=== PATIENT | female | born 1955 | race Caucasian/White ===

== ENCOUNTER → 2017-10-31 | Outpatient (CLI) | payer BC ==
[2017-11-03 11:40] LABS: HPV Genotype 16 Not Detected (NOTDET); HPV Genotype 18 Not Detected (NOTDET)
[2017-11-10 11:41] LABS: HPV High Risk Other Not Detected (NOTDET)
== END ==
LOC: LAB 09:54
PROVIDERS: Nurse Practitioner Family
DX: Z01.419 Encounter for gynecological examination (general) (routine) without abnormal findings (principal)
CPT/HCPCS: 87624; G0145

== ENCOUNTER → 2019-05-31 | Outpatient (CLI) | payer MEDICARE ==
[~2019-05-31] MED LIST: Bupropion HCl150 M2 PO; FERSU300 PO; KRILL OIL500 MG PO; LISI20 PO; VAGIFEM10 MCG VAG; VITAMIN C500 MG PO; ZESTORETIC 20-121 EA PO
== END ==
LOC: LAB 15:30 → LAB SHORT 15:30
DX: Z48.817 Encounter for surgical aftercare following surgery on the skin and subcutaneous tissue (principal); L08.9 Local infection of the skin and subcutaneous tissue, unspecified
CPT/HCPCS: 87070; 87205

== ENCOUNTER 2019-08-07 08:20 | Day surgery (SDC) | payer MEDICARE ==
[~2019-08-07] VITALS: Ht 165.1 cm; Wt 55.9 kg
--- NOTE | 2019-08-07 08:55 | NUR ---
08/07/19 0855 Amanda Barnes IV START IN RIGHT HAND DID NOT FLOW
== END 2019-08-07 11:05 | disposition home or self-care (01) ==
LOC: ORSCSDS 08:20
PROVIDERS: Internal Medicine Gastroenterology
PROC: 0DB98ZX Excision of Duodenum, Via Natural or Artificial Opening Endoscopic, Diagnostic (ICD-10-PCS; principal; 2019-08-07 09:45)
PROC: 0DB48ZX Excision of Esophagogastric Junction, Via Natural or Artificial Opening Endoscopic, Diagnostic (ICD-10-PCS; principal; 2019-08-07 09:45)
PROC: 0DBP8ZX Excision of Rectum, Via Natural or Artificial Opening Endoscopic, Diagnostic (ICD-10-PCS; principal; 2019-08-07 09:45)
PROC: 0DBL8ZX Excision of Transverse Colon, Via Natural or Artificial Opening Endoscopic, Diagnostic (ICD-10-PCS; principal; 2019-08-07 09:45)
PROC: 0DB68ZX Excision of Stomach, Via Natural or Artificial Opening Endoscopic, Diagnostic (ICD-10-PCS; principal; 2019-08-07 09:45)
DX: D50.9 Iron deficiency anemia, unspecified (principal); C20 Malignant neoplasm of rectum; D12.3 Benign neoplasm of transverse colon; K21.9 Gastro-esophageal reflux disease without esophagitis; I10 Essential (primary) hypertension; N18.3 Chronic kidney disease, stage 3 (moderate); R63.4 Abnormal weight loss; Z79.899 Other long term (current) drug therapy
CPT/HCPCS: 88305; 88342; J2704; J7120

== ENCOUNTER 2019-08-19 05:50 | Day surgery (SDC) | payer MEDICARE ==
[~2019-08-19] VITALS: Ht 162.6 cm; Wt 57.8 kg
--- NOTE | 2019-08-19 06:35 | NUR ---
Ambulatory in Day Surgery History, Chart, Medications and Allergies reviewed before start of procedure.Lungs clear T/O to Auscultation. Patient confirms NPO status and agrees with scheduled surgery. Patient reports completing Chlorhexadine shower X2 prior to admission to hospital.Surgical site prepped with 2% Chlorhexidine cloth wipe.
--- NOTE | 2019-08-19 11:02 | NUR ---
Discharge instructions reviewed with patient. Patient verbalizes understanding. Copy given to patient to take home. Discharged via wheelchair to private car for ride home.
== END 2019-08-19 22:50 | disposition home or self-care (01) ==
LOC: ORSCMMR 05:50 → ORD 07:30 → ORSCMMR 07:30
PROVIDERS: Surgery
PROC: B5131ZA Fluoroscopy of Right Jugular Veins using Low Osmolar Contrast, Guidance (ICD-10-PCS; principal; 2019-08-19 07:30)
PROC: 05HM33Z Insertion of Infusion Device into Right Internal Jugular Vein, Percutaneous Approach (ICD-10-PCS; principal; 2019-08-19 07:30)
DX: C20 Malignant neoplasm of rectum (principal); I10 Essential (primary) hypertension; Z79.899 Other long term (current) drug therapy
CPT/HCPCS: 71045; 77001; A9270-GY; C1788; J0690; J1100; J1642; J2250; J2405; J2704; J3010; J7120

== ENCOUNTER 2019-10-23 00:01 | Day surgery (SDC) | payer MEDICARE ==
[2019-10-23] MEDS ORDERED: ASCO500 PO (11:49)
[2019-10-23] MEDS ORDERED: ONDA8 PO (11:51)
[2019-10-23] MEDS ORDERED: TRIDERM28.4 GM TOP (11:54)
[2019-10-23] MEDS ORDERED: LEVOFLOXACIN750 MG PO (11:55)
[2019-10-23] MEDS ORDERED: METPRE4 PO (11:57)
[2019-10-23] MEDS ORDERED: KRILL OIL 5001 EACH PO (11:59)
[2019-10-23] MEDS ORDERED: HEPARIN LO100 UNIT/1 IV (12:03)
== END 2019-10-23 11:40 | disposition home or self-care (01) ==
LOC: ATC 00:01
DX: Z45.1 Encounter for adjustment and management of infusion pump (principal); C20 Malignant neoplasm of rectum; C77.5 Secondary and unspecified malignant neoplasm of intrapelvic lymph nodes; I12.9 Hypertensive chronic kidney disease with stage 1 through stage 4 chronic kidney disease, or unspecified chronic kidney disease; N18.3 Chronic kidney disease, stage 3 (moderate); E55.9 Vitamin D deficiency, unspecified; D50.9 Iron deficiency anemia, unspecified; Z79.890 Hormone replacement therapy; Z79.899 Other long term (current) drug therapy; Z88.5 Allergy status to narcotic agent
CPT/HCPCS: 96523; J1642

== ENCOUNTER 2020-03-06 06:07 | Emergency (ER) | payer MEDICARE ==
[~2020-03-06] VITALS: Ht 162.6 cm; Wt 59.0 kg
[~2020-03-06 06:07] MED LIST changes: +ASCO500 PO; +HEPARIN LO100 UNIT/1 IV; +KRILL OIL 5001 EACH PO; +LEVOFLOXACIN750 MG PO; +METPRE4 PO; +ONDA8 PO; +TRIDERM28.4 GM TOP
[2020-03-06] MEDS ORDERED: OMEP20ER PO (06:22)
[2020-03-06 07:51] LABS: Source, Urine Clean Catch
[2020-03-06 07:53] LABS: BASOPHILS ABSOLUTE AUTO 0.02 K/mm3 (0.00-0.23); BASOPHILS PERCENT AUTO 0 % (0-2); EOSINOPHILS PERCENT AUTO 0 % (0-6); Hematocrit 38.8 % (33.0-51.0); Hemoglobin 13.2 g/dL (11.5-16.0); IMMATURE GRAN ABSOLUTE AUTO 0.03 K/mm3 (0.00-0.10); IMMATURE GRAN PERCENT AUTO 0 % (0-1); LYMPHOCYTES PERCENT AUTO 3 % (21-46); MONOCYTES ABSOLUTE AUTO 0.66 K/mm3 (0.16-1.47); MONOCYTES PERCENT AUTO 7 % (4-13); Mean Corpuscular HGB 36.7 pg (26.0-34.0); Mean Corpuscular Volume 108 fL (80-100); Mean Platelet Volume 9.1 fL (9.1-12.4); NEUTROPHILS PERCENT AUTO 90 % (41-73); Platelet Count 297 K/mm3 (150-400); RDW Coefficient Variation 13.8 % (11.7-14.2); RDW Standard Deviation 55.2 fL (35.1-46.3); White Blood Cell Count 10.11 K/mm3 (4.00-11.30)
[2020-03-06 07:57] LABS: Bilirubin, Urine Neg (Neg); Blood, Urine 1+ (Neg); Glucose Qualitative, Urine Neg (Neg); Ketones, Urine Neg (Neg); Leukocyte Esterase, Urine 1+ (Neg); Nitrite, Urine Neg (Neg); Protein, Urine Neg (Neg); Specific Gravity, Urine 1.015 (1.003-1.022); Urobilinogen, Urine 2+ (Normal)
[2020-03-06 08:07] LABS: Appearance, Urine Clear (Clear); Color, Urine Yellow (P-Yellow)
[2020-03-06 08:08] LABS: Bacteria Few /hpf; Calcium Oxalate Crystals Rare /hpf; Mucus Light (0-Heavy); Red Blood Cells, Urine 0-2 /hpf (0-2); Squamous Epithelial Cells Rare /hpf (Few)
[2020-03-06 08:12] LABS: Albumin, Blood 3.2 g/dL (3.4-5.0); Albumin/Globulin Ratio 0.9 (0.8-1.8); Bilirubin, Total 1.2 mg/dL (0.1-1.0); Bun/Creatinine Ratio 21.5 (12.0-20.0); Calcium, Blood 9.3 mg/dL (8.5-10.1); Creatinine, Blood 1.07 mg/dL (0.40-1.00); Globulin, Blood 3.6 g/dL (2.2-4.0); Potassium, Blood 4.1 mmol/L (3.5-5.5); Total Protein, Blood 6.8 g/dL (6.4-8.2)
[2020-03-06] MEDS ORDERED: Augmentin 875-1 EACH PO (10:05)
[2020-03-06] MEDS ORDERED: ONDA4ODT MM (10:05)
[2020-03-06] MEDS ORDERED: Ultram50 MG PO (10:13)
== END 2020-03-06 10:21 | disposition home or self-care (01) ==
LOC: ER 06:07
PROVIDERS: Emergency Medicine
DX: K50.00 Crohn's disease of small intestine without complications (principal); I10 Essential (primary) hypertension; K21.9 Gastro-esophageal reflux disease without esophagitis; Z88.5 Allergy status to narcotic agent; Z79.899 Other long term (current) drug therapy; Z90.49 Acquired absence of other specified parts of digestive tract
CPT/HCPCS: 36415; 74177; 80053; 81001; 83690; 85025; 87086; 96374-59; 96375-59; 99284-25; J2405; J3010; Q9967

== ENCOUNTER 2020-03-15 19:38 | Inpatient (IN) | payer MEDICARE ==
[~2020-03-15] VITALS: Ht 162.6 cm; Wt 59.0 kg
[~2020-03-15 19:38] MED LIST changes: +Augmentin 875-1 EACH PO; +OMEP20ER PO; +ONDA4ODT MM; +Ultram50 MG PO
[2020-03-15 20:14] LABS: Hematocrit 40.3 % (33.0-51.0); Hemoglobin 13.4 g/dL (11.5-16.0); Mean Corpuscular HGB 35.6 pg (26.0-34.0); Mean Corpuscular HGB Conc 33.3 g/dL (31.5-36.5); Mean Corpuscular Volume 107 fL (80-100); Mean Platelet Volume 8.9 fL (9.1-12.4); Platelet Count 364 K/mm3 (150-400); RDW Coefficient Variation 12.9 % (11.7-14.2); RDW Standard Deviation 51.1 fL (35.1-46.3); Red Blood Cell Count 3.76 M/mm3 (3.80-5.20); White Blood Cell Count 12.87 K/mm3 (4.00-11.30)
[2020-03-15 20:34] LABS: Alanine Aminotransfer (ALT/SGP 13 U/L (12-78); Albumin, Blood 3.3 g/dL (3.4-5.0); Albumin/Globulin Ratio 0.8 (0.8-1.8); Alk Phos 99 U/L (50-136); Anion Gap 6 mmol/L (6-16); Aspartate Aminotrans (AST/SGOT 20 U/L (12-37); Bilirubin, Total 1.3 mg/dL (0.1-1.0); Blood Urea Nitrogen 16 mg/dL (8-24); Bun/Creatinine Ratio 17.7 (12.0-20.0); CO2, Blood 30 mmol/L (21-32); Calcium, Blood 9.4 mg/dL (8.5-10.1); Chloride, Blood 101 mmol/L (98-108); Creatinine, Blood 0.91 mg/dL (0.40-1.00); Globulin, Blood 3.9 g/dL (2.2-4.0); Glomerular Filtration Rate >60 (60-); Glucose, Blood 118 mg/dL (70-99); Potassium, Blood 3.6 mmol/L (3.5-5.5); Sodium, Blood 137 mmol/L (136-145); Total Protein, Blood 7.2 g/dL (6.4-8.2)
[2020-03-15 21:01] LABS: BASOPHILS PERCENT MAN 0 % (0-2); EOSINOPHILS ABSOLUTE MAN 0.12 K/mm3 (0.00-0.68); EOSINOPHILS PERCENT MAN 1 % (0-6); LYMPHOCYTES ABSOLUTE MAN 0.38 K/mm3 (0.84-5.20); LYMPHOCYTES PERCENT MAN 3 % (21-46); MONOCYTES ABSOLUTE MAN 0.77 K/mm3 (0.16-1.47); MONOCYTES PERCENT MAN 6 % (4-13); NEUTROPHILS ABSOLUTE MAN 11.58 K/mm3 (1.96-9.15); SEG NEUTROPHILS PERCENT MAN 90 % (41-73); TOTAL CELLS COUNTED 100
[2020-03-15 21:54] LABS: Source, Urine Clean Catch
[2020-03-15 21:56] LABS: Bilirubin, Urine Neg (Neg); Blood, Urine 1+ (Neg); Glucose Qualitative, Urine Neg (Neg); Ketones, Urine 1+ (Neg); Leukocyte Esterase, Urine 1+ (Neg); Nitrite, Urine Neg (Neg); Protein, Urine Neg (Neg); Specific Gravity, Urine 1.015 (1.003-1.022); Urobilinogen, Urine NORM (Normal)
[2020-03-15] MEDS ORDERED: ZESTRIL40 M2 PO (21:58)
[2020-03-15] MEDS ORDERED: BUPROPION XL150 M1 PO (21:59)
[2020-03-15] MEDS ORDERED: HYDROCHLOROTH12.5 MG PO (21:59)
[2020-03-15 22:01] LABS: Appearance, Urine Clear (Clear); Color, Urine Yellow (P-Yellow)
[2020-03-15 22:02] LABS: Amorphous Light (0-Heavy); Bacteria Few /hpf; Red Blood Cells, Urine 0-2 /hpf (0-2); Squamous Epithelial Cells Not Seen /hpf (Few)
--- NOTE | 2020-03-16 00:48 | NUR ---
64 YR OLD FEMALE ADMITTED TO FLOOR FROM THE ED WITH DX OF COLITIS, POSSIBLY DUE TO RECENT RADIATION THERAPY FOR RECTAL CANCER. ALERT AND ORIENTED. IVF AND ABX INFUSING PER MD ORDERS - SEE MAR FOR DETAILS. VOICED SLIGHT DECREASED SENSATION OF BILAT HANDS/FINGERS SHE SAID SINCE LAST DOSE OF RADIATION. HOB ELEVATED. ORIENTED TO USE OF CALL LIGHT. CALL LIGHT IN REACH.
--- NOTE | 2020-03-16 03:57 | NUR ---
SHIFT SUMMARY PT ADMITTED EARLIER THIS SHIFT FOR COLITIS. REMAINS NPO PER MD ORDER, ICE CHIPS TO KEEP MOUTH MOIST. IVF OF NS CONTINUES AT 100 ML/HR. HAS BEEN RESTING QUIETLY - NO COMPLAINTS OF PAIN VOICED. ORIENTED TO CALL LIGHT, CALL LIGHT IN REACH.
[2020-03-16 09:35] LABS: BASOPHILS ABSOLUTE AUTO 0.02 K/mm3 (0.00-0.23); BASOPHILS PERCENT AUTO 1 % (0-2); EOSINOPHILS ABSOLUTE AUTO 0.02 K/mm3 (0.00-0.68); EOSINOPHILS PERCENT AUTO 1 % (0-6); Hematocrit 33.5 % (33.0-51.0); Hemoglobin 10.9 g/dL (11.5-16.0); IMMATURE GRAN ABSOLUTE AUTO 0.01 K/mm3 (0.00-0.10); IMMATURE GRAN PERCENT AUTO 0 % (0-1); LYMPHOCYTES PERCENT AUTO 9 % (21-46); MONOCYTES ABSOLUTE AUTO 0.37 K/mm3 (0.16-1.47); MONOCYTES PERCENT AUTO 9 % (4-13); Mean Corpuscular HGB Conc 32.5 g/dL (31.5-36.5); Mean Corpuscular Volume 108 fL (80-100); Mean Platelet Volume 8.9 fL (9.1-12.4); NEUTROPHILS ABSOLUTE AUTO 3.46 K/mm3 (1.96-9.15); NEUTROPHILS PERCENT AUTO 81 % (41-73); Platelet Count 260 K/mm3 (150-400); RDW Coefficient Variation 12.9 % (11.7-14.2); Red Blood Cell Count 3.11 M/mm3 (3.80-5.20); White Blood Cell Count 4.28 K/mm3 (4.00-11.30)
[2020-03-16 09:54] LABS: Alanine Aminotransfer (ALT/SGP 11 U/L (12-78); Albumin, Blood 2.7 g/dL (3.4-5.0); Albumin/Globulin Ratio 0.9 (0.8-1.8); Alk Phos 74 U/L (50-136); Anion Gap 7 mmol/L (6-16); Aspartate Aminotrans (AST/SGOT 15 U/L (12-37); Bilirubin, Total 0.6 mg/dL (0.1-1.0); Blood Urea Nitrogen 11 mg/dL (8-24); Bun/Creatinine Ratio 12.5 (12.0-20.0); CO2, Blood 28 mmol/L (21-32); Calcium, Blood 8.6 mg/dL (8.5-10.1); Chloride, Blood 106 mmol/L (98-108); Creatinine, Blood 0.88 mg/dL (0.40-1.00); Glomerular Filtration Rate >60 (60-); Glucose, Blood 146 mg/dL (70-99); Potassium, Blood 3.4 mmol/L (3.5-5.5); Sodium, Blood 141 mmol/L (136-145); Total Protein, Blood 5.7 g/dL (6.4-8.2)
--- NOTE | 2020-03-16 11:53 | NUR ---
took another bp due to the low bp at 0755, bp 89/63, called dr to inform and ask for instructions, currently on ns at 100, sitting up and talking on phone, quite cheerful after talk with specialist, will continue to monitor and treat
--- NOTE | 2020-03-16 19:12 | NUR ---
a+o, bp back to normal range, ns infusing at 100, rm air, still not tolerating eating, even taking pain pills caused pain, still on liquid diet, bsr shared with noc nurse and patient
--- NOTE | 2020-03-17 04:17 | NUR ---
SUMMARY PT HAD SOME DISCOMFORT AND WAS TX PER EMAR. PT REPORTED RELIEF AND SLEPT T/O SHIFT. PT CURRENTLY SLEEPING IN NO DISTRESS. CALL LIGHT IN REACH.
[2020-03-17 05:28] LABS: Hematocrit 31.9 % (33.0-51.0); Hemoglobin 10.6 g/dL (11.5-16.0)
[2020-03-17 05:45] LABS: Anion Gap 5 mmol/L (6-16); Blood Urea Nitrogen 6 mg/dL (8-24); Bun/Creatinine Ratio 7.9 (12.0-20.0); CO2, Blood 28 mmol/L (21-32); Calcium, Blood 8.2 mg/dL (8.5-10.1); Chloride, Blood 109 mmol/L (98-108); Creatinine, Blood 0.76 mg/dL (0.40-1.00); Glomerular Filtration Rate >60 (60-); Glucose, Blood 92 mg/dL (70-99); Potassium, Blood 3.5 mmol/L (3.5-5.5); Sodium, Blood 142 mmol/L (136-145)
--- NOTE | 2020-03-17 16:32 | NUR ---
SHIFT SUMMARY PT UPGRADED TO PUREE DIET. PT YET TO HAVE THIS DIET AND WILL TRY IT FOR DINNER. PT HAVING DIFFICULTY WITH THE FULL LIQUID DIET BEING TOO SWEET. WILL MONITOR HOW PUREE DIET GOES. PT MEDICATED FOR PAIN & NAUSEA ONCE THIS SHIFT. IND IN ROOM. NO ACUTE CHANGES IN ASSESSMENT AT THIS TIME. VSS. WILL CONTINUE TO MONITOR UNTIL TURNOVER IS COMPLETE.
--- NOTE | 2020-03-18 04:30 | NUR ---
SUMMARY PT HAD SOME ABD DISCOMFORT THIS AM AND WAS TX PER EMAR. PT REPORTED RELIEF. PT HAS BEEN SLEEPING WELL. PT HAS TOLERERATED PO MEDS WELL. PT DID STATE THAT SHE FEELS THE PROTONIX CAUSES HER GI UPSET IN THE MORNING. PT CURRENTLY SLEEPING IN NO DISTRESS. CALL LIGHT IN REACH.
--- NOTE | 2020-03-18 04:48 | NUR ---
0445 PT WOKE UP W/ SHARP SUDDEN ABD PAIN 9/10 W/ NAUSEA. PT TX W/ FENTANYL AND ZOFRAN. PT PAIN REDUCED TO 2/10 AND NAUSEA RELIEVED.
[2020-03-18 05:22] LABS: BASOPHILS ABSOLUTE AUTO 0.02 K/mm3 (0.00-0.23); BASOPHILS PERCENT AUTO 0 % (0-2); EOSINOPHILS ABSOLUTE AUTO 0.03 K/mm3 (0.00-0.68); EOSINOPHILS PERCENT AUTO 1 % (0-6); Hematocrit 33.3 % (33.0-51.0); Hemoglobin 11.2 g/dL (11.5-16.0); IMMATURE GRAN ABSOLUTE AUTO 0.02 K/mm3 (0.00-0.10); IMMATURE GRAN PERCENT AUTO 0 % (0-1); LYMPHOCYTES ABSOLUTE AUTO 0.33 K/mm3 (0.84-5.20); LYMPHOCYTES PERCENT AUTO 7 % (21-46); MONOCYTES ABSOLUTE AUTO 0.37 K/mm3 (0.16-1.47); MONOCYTES PERCENT AUTO 8 % (4-13); Mean Corpuscular HGB 35.1 pg (26.0-34.0); Mean Corpuscular HGB Conc 33.6 g/dL (31.5-36.5); Mean Platelet Volume 8.8 fL (9.1-12.4); NEUTROPHILS ABSOLUTE AUTO 4.12 K/mm3 (1.96-9.15); NEUTROPHILS PERCENT AUTO 84 % (41-73); Platelet Count 260 K/mm3 (150-400); RDW Coefficient Variation 12.5 % (11.7-14.2); RDW Standard Deviation 48.2 fL (35.1-46.3); Red Blood Cell Count 3.19 M/mm3 (3.80-5.20); White Blood Cell Count 4.89 K/mm3 (4.00-11.30)
[2020-03-18 05:39] LABS: Mean Corpuscular Volume 104 fL (80-100)
[2020-03-18 05:45] LABS: Albumin, Blood 2.8 g/dL (3.4-5.0); Anion Gap 8 mmol/L (6-16); Blood Urea Nitrogen 6 mg/dL (8-24); Bun/Creatinine Ratio 7.7 (12.0-20.0); CO2, Blood 26 mmol/L (21-32); Calcium, Blood 8.5 mg/dL (8.5-10.1); Chloride, Blood 106 mmol/L (98-108); Creatinine, Blood 0.78 mg/dL (0.40-1.00); Glomerular Filtration Rate >60 (60-); Glucose, Blood 94 mg/dL (70-99); Phosphorus, Blood 3.4 mg/dL (2.5-4.9); Potassium, Blood 3.3 mmol/L (3.5-5.5); Sodium, Blood 140 mmol/L (136-145)
--- NOTE | 2020-03-18 17:23 | NUR ---
SHIFT SUMMARY PT UPGRADED TO [facility] SOFT DIET. TOLERATING SO FAR. POOR INTAKE OVERALL STILL. PT MEDICATED WITH 1/2 TAB PERCOCET TWICE THIS SHIFT. PT STATES IT DOES WELL FOR THE PAIN. PT LOST IV ACCESS DUE TO LEAKAGE. JU CALLED & NOTIFIED. ORDER TO LEAVE OUT GIVEN. GRANT CHANGED TO SL. NO OTHER ACUTE CHANGES IN ASSESSMENT AT THIS TIME. VSS. WILL CONTINUE TO MONITOR UNTIL TURNOVER IS COMPLETE.
--- NOTE | 2020-03-19 04:39 | NUR ---
SHIFT SUMMARY: VSS. TEMP 99.1. AAOX3. COMMUNICATES NEEDS. PT DENIES N/V. ABD TENDERNESS W/PALPATION IN EPIGASTRIC REGION AND ENTIRE MIDLINE ABD. INDEPENDENT IN ROOM. HAS BEEN RESTING QUIETLY IN ROOM ALL NIGHT. NO ACUTE CHANGES. WILL CONT TO MONITOR.
[2020-03-19] MEDS ORDERED: ACET325 PO (09:32)
[2020-03-19] MEDS ORDERED: IBUP400 PO (09:33)
[2020-03-19] MEDS ORDERED: ONDA4ODT MM (09:33)
[2020-03-19] MEDS ORDERED: Percocet 5-3251 EACH PO (09:34)
[2020-03-19] MEDS ORDERED: TRAM50 PO (09:35)
[2020-03-19] MEDS ORDERED: OMEP20ER PO (09:35)
--- NOTE | 2020-03-19 15:09 | NUR ---
PT DISCHARGED FROM THE UNIT LEFT VIA WHEEL CHAIR. DISCHARGE INSTRUCTIONS REVIEWED, HARD SCRIPTS GIVEN. MEDICATIONS FAXED TO PHARMACY. PTS WILL DRIVE HOME.
== END 2020-03-19 11:15 | disposition home or self-care (01) | DRG 394 ==
LOC: ER 19:38 → MEDS 19:39
PROVIDERS: Emergency Medicine; Internal Medicine; Internal Medicine Gastroenterology; Student in an Organized Health Care Education/Training Program; ADMIT Internal Medicine
DX: K52.0 Gastroenteritis and colitis due to radiation (principal); C20 Malignant neoplasm of rectum; F32.9 Major depressive disorder, single episode, unspecified; I10 Essential (primary) hypertension
CPT/HCPCS: 36415; 74177; 80048; 80053; 80069; 81001; 82607; 82746; 83690; 85014; 85018; 85025; 87086; 96361; 96365-59; 96375; 96375-59; 96376; 99285-25; A9270; A9270-GY; G0378; J0696; J0744; J1650; J2270; J2405; J3010; J7030; Q9967

== ENCOUNTER 2020-08-05 07:44 | Day surgery (SDC) | payer MEDICARE ==
[~2020-08-05] VITALS: Ht 162.6 cm; Wt 57.6 kg
[~2020-08-05 07:44] MED LIST changes: +ACET325 PO; +ACET500 PO; +BUPR150ER PO; +BUPROPION XL150 M1 PO; +HYDROCHLOROTH12.5 MG PO; +IBUP400 PO; +ONDA4 PO; +Percocet 5-3251 EACH PO; +TRAM50 PO; +Vitamin D2000 UNIT PO; +ZESTRIL40 M2 PO
== END 2020-08-05 09:55 | disposition home or self-care (01) ==
LOC: ORSCSDS 07:44
PROVIDERS: Internal Medicine Gastroenterology
PROC: 0DBB8ZX Excision of Ileum, Via Natural or Artificial Opening Endoscopic, Diagnostic (ICD-10-PCS; principal; 2020-08-05 09:00)
PROC: 0DBP8ZX Excision of Rectum, Via Natural or Artificial Opening Endoscopic, Diagnostic (ICD-10-PCS; principal; 2020-08-05 09:00)
DX: Z12.11 Encounter for screening for malignant neoplasm of colon (principal); Z85.038 Personal history of other malignant neoplasm of large intestine; K62.7 Radiation proctitis; K62.4 Stenosis of anus and rectum; K64.8 Other hemorrhoids; I10 Essential (primary) hypertension; N18.30 Chronic kidney disease, stage 3 unspecified; Z79.899 Other long term (current) drug therapy
CPT/HCPCS: 88305; J0330; J0461; J2001; J2405; J2704; J7120

== ENCOUNTER → 2020-11-17 | Outpatient (CLI) | payer MEDICARE ==
[~2020-11-17] MED LIST changes: +ALPR.5CR PO; +Acetaminophen650 M1 PO; +Budeprion Xl300 MG PO; +CAPE500; +CLIN1TS; +MIRALAX17 GM PO; +TRIA15CR3; +VAGIFEM10 MCG
== END ==
LOC: LAB SHORT 13:14 → LAB 13:14
DX: D48.5 Neoplasm of uncertain behavior of skin (principal)
CPT/HCPCS: 88305

== ENCOUNTER 2021-01-20 12:07 | Day surgery (SDC) | payer MEDICARE ==
[~2021-01-20] VITALS: Ht 162.6 cm; Wt 59.6 kg
== END 2021-01-20 13:48 | disposition home or self-care (01) ==
LOC: ORSCSDS 12:07
PROVIDERS: Internal Medicine Gastroenterology
PROC: 0DBP8ZX Excision of Rectum, Via Natural or Artificial Opening Endoscopic, Diagnostic (ICD-10-PCS; principal; 2021-01-20 13:30)
DX: Z85.048 Personal history of other malignant neoplasm of rectum, rectosigmoid junction, and anus (principal); K62.7 Radiation proctitis; I10 Essential (primary) hypertension; K64.8 Other hemorrhoids; K62.4 Stenosis of anus and rectum; Z79.899 Other long term (current) drug therapy
CPT/HCPCS: 88305; J2704; J7120

== ENCOUNTER → 2021-02-15 | Outpatient (CLI) | payer MEDICARE | END | disposition home or self-care (01) | LOC: LAB SHORT 12:20 | DX: D48.5 Neoplasm of uncertain behavior of skin (principal) ==

== ENCOUNTER 2021-10-04 08:39 | Day surgery (SDC) | payer MEDICARE ==
[~2021-10-04] VITALS: Ht 165.1 cm; Wt 57.8 kg
--- NOTE | 2021-10-04 09:15 | NUR ---
10/04/21 0915 Alyse Arreola 1 TRY RIGHT HAND BLEW
--- NOTE | 2021-10-04 10:14 | NUR ---
10/04/21 1014 Sue Velasquez POOR PREP PROCEDURE ABORTED
== END 2021-10-04 10:36 | disposition home or self-care (01) ==
LOC: ORSCSDS 08:39
PROVIDERS: Student in an Organized Health Care Education/Training Program
PROC: 0DJD8ZZ Inspection of Lower Intestinal Tract, Via Natural or Artificial Opening Endoscopic (ICD-10-PCS; principal; 2021-10-04 10:00)
DX: Z85.048 Personal history of other malignant neoplasm of rectum, rectosigmoid junction, and anus (principal); I10 Essential (primary) hypertension; Z79.899 Other long term (current) drug therapy; D64.9 Anemia, unspecified
CPT/HCPCS: J2704; J7120

== ENCOUNTER 2021-11-18 10:43 | Day surgery (SDC) | payer MEDICARE ==
[~2021-11-18 10:43] MED LIST changes: +MULVITA PO; +ONDA4; +Vitamin D1000 UNI1 PO
--- NOTE | 2021-11-18 11:46 | NUR ---
History, Chart, Medications and Allergies reviewed before start of procedure. Pre-Op teaching done. Pt verbalizes understanding. Patient States Post-Procedure ride home has been arranged.
--- NOTE | 2021-11-18 12:53 | NUR ---
11/18/21 1253 Naga Santos History, Chart, Medications and Allergies reviewed before start of procedure. Patient confirms NPO status and agrees with scheduled surgery. 3-LEAD EKG REVIEWED WITH PHYSICIAN PRIOR TO START OF PROCEDURE. MONITOR INTACT WITH CONTINUOUS PULSE OXIMETRY AND INTERMITTENT BP. PATIENT DETERMINED TO BE ASA APPROPRIATE FOR PROPOFOL SEDATION PRIOR TO START OF PROCEDURE BY DR. WILKINS.
--- NOTE | 2021-11-18 13:38 | NUR ---
Discharge instructions reviewed with patient. Patient verbalizes understanding. Copy given to patient to take home. AT BEDSIDE
--- NOTE | 2021-11-18 14:03 | NUR ---
Discharged via wheelchair to private car for ride home.
== END 2021-11-18 14:05 | disposition home or self-care (01) ==
LOC: ORSCMMR 10:43 → ORD 14:00 → ORSCMMR 14:05
PROVIDERS: Student in an Organized Health Care Education/Training Program
PROC: 0DBP8ZX Excision of Rectum, Via Natural or Artificial Opening Endoscopic, Diagnostic (ICD-10-PCS; principal; 2021-11-18 12:00)
DX: C20 Malignant neoplasm of rectum (principal); Z85.038 Personal history of other malignant neoplasm of large intestine; I10 Essential (primary) hypertension; K62.7 Radiation proctitis; Z79.899 Other long term (current) drug therapy
CPT/HCPCS: 88305; J2704; J7120

== ENCOUNTER 2022-04-06 14:36 | Day surgery (SDC) | payer MEDICARE ==
[~2022-04-06 14:36] MED LIST changes: +ALPR.5; +Budeprion Xl300 MG; +Calcium Carbon500 MG PO; +DIAZ5 PO; +ERGO400; +ESTRADIOL; +OMEP20ER; +ONDA4ODT; +Percocet 10-321 EACH; +TRIDERM28.4 GM; +VITAMIN D310 MC4 PO; +Vitamin B-12100 MCG; +ZESTORETIC 20-1 EAC3
[2022-04-06] MEDS ORDERED: DIPATR PO (15:40)
[2022-04-06] MEDS ORDERED: ZINC15 PO (15:40)
[2022-04-06] MEDS ORDERED: DOCU100 PO (15:42)
[2022-04-06] MEDS ORDERED: EMLA CREAM TOP (15:43)
[2022-04-06] MEDS ORDERED: Amlodipine Bes2.5 MG PO (15:44)
== END 2022-04-06 15:22 | disposition home or self-care (01) ==
LOC: ATC 14:36
DX: C20 Malignant neoplasm of rectum (principal); I12.9 Hypertensive chronic kidney disease with stage 1 through stage 4 chronic kidney disease, or unspecified chronic kidney disease; N18.30 Chronic kidney disease, stage 3 unspecified; Z88.5 Allergy status to narcotic agent; Z79.899 Other long term (current) drug therapy
CPT/HCPCS: 96523; J1642

== ENCOUNTER 2022-04-28 16:59 | Day surgery (SDC) | payer MEDICARE ==
[~2022-04-28 16:59] MED LIST changes: +Amlodipine Bes2.5 MG PO; +DIPATR PO; +DOCU100 PO; +EMLA CREAM TOP; +ZINC15 PO
== END 2022-04-28 17:21 | disposition home or self-care (01) ==
LOC: ATC 16:59
DX: Z45.2 Encounter for adjustment and management of vascular access device (principal); C20 Malignant neoplasm of rectum; C78.00 Secondary malignant neoplasm of unspecified lung; C78.7 Secondary malignant neoplasm of liver and intrahepatic bile duct; I12.9 Hypertensive chronic kidney disease with stage 1 through stage 4 chronic kidney disease, or unspecified chronic kidney disease; N18.30 Chronic kidney disease, stage 3 unspecified; Z79.899 Other long term (current) drug therapy
CPT/HCPCS: 96523; J1642

== ENCOUNTER 2022-05-12 01:21 | Day surgery (SDC) | payer MEDICARE | END 2022-05-12 14:50 | disposition home or self-care (01) | LOC: ATC 01:21 | DX: Z45.2 Encounter for adjustment and management of vascular access device (principal); C20 Malignant neoplasm of rectum; I12.9 Hypertensive chronic kidney disease with stage 1 through stage 4 chronic kidney disease, or unspecified chronic kidney disease; N18.30 Chronic kidney disease, stage 3 unspecified; Z88.5 Allergy status to narcotic agent; Z79.899 Other long term (current) drug therapy | CPT/HCPCS: 96523; J1642 ==

== ENCOUNTER 2022-06-09 01:15 | Day surgery (SDC) | payer MEDICARE | END 2022-06-09 10:25 | disposition home or self-care (01) | LOC: ATC 01:15 | DX: Z45.2 Encounter for adjustment and management of vascular access device (principal); C20 Malignant neoplasm of rectum; I12.9 Hypertensive chronic kidney disease with stage 1 through stage 4 chronic kidney disease, or unspecified chronic kidney disease; N18.30 Chronic kidney disease, stage 3 unspecified; Z88.5 Allergy status to narcotic agent; Z79.899 Other long term (current) drug therapy | CPT/HCPCS: 96523; J1642 ==